=== PATIENT | female | born 1965 | race Caucasian/White ===

== ENCOUNTER → 2016-07-11 | Outpatient (CLI) | payer MEDICARE | LOC: SP 14:53 | PROVIDERS: ATTEND Physician Assistant | DX: M79.661 Pain in right lower leg (principal) | CPT/HCPCS: 93971 ==

== ENCOUNTER → 2016-08-26 | Outpatient (CLI) | payer MEDICARE ==
[2016-08-26 11:09] LABS: ABSOLUTE BASOPHILS # (AUTO) 0.1 10^3/uL (0.0-0.2); ABSOLUTE EOSINOPHILS # (AUTO) 0.3 10^3/uL (0.0-0.6); ABSOLUTE LYMPHOCYTES (AUTO) 2.6 10^3/uL (0.5-4.7); ABSOLUTE MONOCYTES (AUTO) 0.6 10^3/uL (0.1-1.4); ABSOLUTE NEUT (AUTO) 5.6 10^3/uL (1.7-8.2); BASOPHILS % (AUTO) 0.7 % (0-2); EOSINOPHILS % (AUTO) 2.9 % (0-6); HEMATOCRIT 42.6 % (36.0-47.0); HEMOGLOBIN 14.7 g/dL (12.0-15.5); HGB HCT DIFFERENCE 1.5; LYMPHOCYTES % (AUTO) 28.4 % (13-45); MEAN CORPUSCULAR HEMOGLOBIN 32.2 pg (27.0-33.4); MEAN CORPUSCULAR HGB CONC 34.5 g/dL (32.0-36.0); MEAN CORPUSCULAR VOLUME 93 fl (80-97); MONOCYTES % (AUTO) 6.3 % (3-13); RED BLOOD COUNT 4.56 10^6/uL (3.72-5.28); RED CELL DISTRIBUTION WIDTH 14.1 % (11.5-14.0); SEGMENTED NEUTROPHILS % (AUTO) 61.7 % (42-78); WHITE BLOOD COUNT 9.1 10^3/uL (4.0-10.5)
[2016-08-26 11:35] LABS: ANION GAP 14 (5-19); BLOOD UREA NITROGEN 13 mg/dL (7-20); CALCIUM 10.1 mg/dL (8.4-10.2); CARBON DIOXIDE 23 mmol/L (22-30); CHLORIDE 102 mmol/L (98-107); CREATININE RESULT 0.93 mg/dL (0.52-1.25); GLUCOSE 97 mg/dL (75-110); POTASSIUM 4.8 mmol/L (3.6-5.0); SODIUM 138.7 mmol/L (137-145)
--- NOTE | 2016-08-26 12:58 | EKG REPORT ---
SEVERITY:- NORMAL ECG - SINUS RHYTHM : Confirmed by: Bam Eid 26-Aug-2016 12:56:56
== END ==
LOC: OD 10:03
PROVIDERS: ATTEND Orthopaedic Surgery
DX: Z01.89 Encounter for other specified special examinations (principal)
CPT/HCPCS: 36415; 71020; 80048; 85025; 93005; 93010; 93041; 93042

== ENCOUNTER → 2016-09-16 | Outpatient (CLI) | payer MEDICARE, MEDICAID | LOC: WI 09:21 | PROVIDERS: ATTEND Physician Assistant | DX: Z12.31 Encounter for screening mammogram for malignant neoplasm of breast (principal) | CPT/HCPCS: 77067; G0202 ==

== ENCOUNTER 2016-09-20 10:20 | Emergency (ER) | payer MEDICARE, MEDICAID ==
--- NOTE | 2016-09-20 11:14 | ER Document Report ---
ED Extremity Problem, Lower - General Chief Complaint: Knee Injury Stated Complaint: FELL/KNEE PAIN Time seen by provider: 10:57 Mode of Arrival: Ambulatory Information source: Patient Notes: 51-year-old female presents to ED for pain in her right knee and ankle and foot. She recently had surgery on this right knee for a 20 minutes ago and a prescription for arthritis. She states she fell down the steps twisting her ankle and landing on her knee on the paper stones at the bottom. TRAVEL OUTSIDE OF THE [place] IN LAST 30 DAYS: No - HPI Patient complains to provider of: Injury, Pain, Swelling Location: Ankle, Foot, Knee Occurred: This morning Where: Home Onset/Duration: Gradual, Worse Quality of pain: Sharp, Throbbing Severity: Severe Pain Level: 5 Context: Crush, Fell Recent injury: Yes Associated symptoms: Painful ambulation Exacerbated by: Hanging down, Movement, Walking Relieved by: Nothing - Related Data Allergies/Adverse Reactions: Penicillins Allergy (Severe, Verified 09/20/16 10:24) Anaphylaxis lisinopril [From Zestril] Adverse Reaction (Severe, Verified 09/20/16 10:24) cough morphine [Morphine] Adverse Reaction (Verified 09/20/16 10:24) Confusion Past Medical History - General Information source: Patient - Social History Smoking Status: Current Every Day Smoker Cigarette use (# per day): Yes - pack per day Chew tobacco use (# tins/day): No Smoking Education Provided: Yes Frequency of alcohol use: None Drug Abuse: None Occupation: note Lives with: Family Family History: Arthritis - Osteoporosis and OSTEOARTHRITIS, DM, Hyperlipidemia , Hypertension, Malignancy Patient has suicidal ideation: No Patient has homicidal ideation: No - Past Medical History Cardiac Medical History: Reports: Hx Hypercholesterolemia, Hx Hypertension Pulmonary Medical History: Reports: None EENT Medical History: Reports: None Neurological Medical History: Reports: None Renal/ Medical History: Reports: None Malignancy Medical History: Reports: None GI Medical History: Reports: None Musculoskeltal Medical History: Reports Hx Arthritis - Osteoporosis and osteoarthritis, Reports Hx Musculoskeletal Deformity, Reports Hx Musculoskeletal Trauma Skin Medical History: Reports None Psychiatric Medical History: Reports: Hx Bipolar Disorder Traumatic Medical History: Reports: None Past Surgical History: Reports: Hx Abdominal Surgery - ventral hernia, Hx Cholecystectomy, Hx Hysterectomy, Hx Neurologic Surgery - Total 345 and S1 fusion, Hx Orthopedic Surgery - spinal fusion l3,4 and 5 - Immunizations Hx Diphtheria, Pertussis, Tetanus Vaccination: No Review of Systems - Review of Systems Constitutional: No symptoms reported EENT: No symptoms reported Cardiovascular: No symptoms reported Respiratory: No symptoms reported Gastrointestinal: No symptoms reported Genitourinary: No symptoms reported Female Genitourinary: No symptoms reported Musculoskeletal: Ankle swelling - Ankle pain swelling and abrasion injury, Other - Knee pain and swelling abrasion Skin: No symptoms reported Hematologic/Lymphatic: No symptoms reported Neurological/Psychological: No symptoms reported -: Yes All other systems reviewed and negative Physical Exam - Vital signs Vitals: Temp Pulse Resp BP Pulse Ox 98.1 F 111 H 16 128/93 H 98 09/20/16 10:26 09/20/16 10:26 09/20/16 10:26 09/20/16 10:26 09/20/16 10:26 Interpretation: Normal - General General appearance: Appears well, Alert - HEENT Head: Normocephalic, Atraumatic Eyes: Normal Pupils: PERRL - Respiratory Respiratory status: No respiratory distress Chest status: Nontender Breath sounds: Normal Chest palpation: Normal - Cardiovascular Rhythm: Regular Heart sounds: Normal auscultation Murmur: No - Abdominal Inspection: Normal Distension: No distension Bowel sounds: Normal Tenderness: Nontender Organomegaly: No organomegaly - Back Back: Normal, Nontender - Extremities General upper extremity: Normal inspection, Nontender, Normal color, Normal ROM , Normal temperature General lower extremity: Normal inspection, Nontender, Normal color, Normal ROM , Normal temperature, Normal weight bearing. No: Keira's sign - Neurological Neuro grossly intact: Yes Cognition: Normal Orientation: AAOx4 [place] Coma Scale Eye Opening: Spontaneous [place] Coma Scale Verbal: Oriented [place] Coma Scale Motor: Obeys Commands [place] Coma Scale Total: 15 Speech: Normal Motor strength normal: LUE, RUE, LLE, RLE Sensory: Normal - Psychological Associated symptoms: Normal affect, Normal mood - Skin Skin Temperature: Warm Skin Moisture: Dry Skin Color: Normal, Ecchymosis - Knee and ankle, Other - Large abrasion to the right knee Irregularity with: Swelling - Knee and ankle, Tenderness - Knee and ankle, Weeping - Knee Course - Re-evaluation Re-evalutation: 09/20/16 12:26 Discussed x-rays with patient Will apply Owen wrap and stirrup splint to right ankle and Owen wrap to right knee the patient will be instructed on use of crutches. Patient to follow-up with orthopedic on Thursday. We'll send home with prescription of hydrocodone. - Vital Signs Vital signs: Temp Pulse Resp BP Pulse Ox 98.1 F 111 H 16 128/93 H 98 09/20/16 10:45 09/20/16 10:45 09/20/16 10:45 09/20/16 10:45 09/20/16 10:45 - Diagnostic Test Radiology reviewed: Image reviewed, Reports reviewed Procedures - Immobilization Right Ankle Time completed: 12:27 Immobilizer type: Owen wrap, Ankle stirrup, Crutches Performed by: PCT Post-Proc Neuro Vasc Exam: Normal Alignment checked and good: Yes right knee Immobilizer type: Owen wrap Performed by: PCT Post-Proc Neuro Vasc Exam: Normal Alignment checked and good: Yes Discharge - Discharge Clinical Impression: Fall Qualifiers: Encounter type: initial encounter Qualified Code(s): W19.XXXA - Unspecified fall, initial encounter Ankle sprain Qualifiers: Encounter type: initial encounter Involved ligament of ankle: unspecified ligament Laterality: right Qualified Code(s): S93.401A - Sprain of unspecified ligament of right ankle, initial encounter Knee contusion Qualifiers: Encounter type: initial encounter Laterality: right Qualified Code(s): S80.01XA - Contusion of right knee, initial encounter Abrasion, right knee, initial encounter Qualifiers: Encounter type: initial encounter Qualified Code(s): S80.211A - Abrasion, right knee, initial encounter Condition: Stable Disposition: HOME, SELF-CARE Additional Instructions: CONTUSION: Your injury has resulted in a contusion -- a crushing of the deep tissues. No injury to important structures was detected during the physician's exam. Contusions vary in the amount of pain they cause, and in the length of time required for healing. Typically, the area will become bruised, and will remain painful to touch for two or three weeks. However, most patients are back to working and playing within a few days. After the initial period of rest and cold-packs, your symptoms (together with the doctor's recommendations) will determine how rapidly you can get back to full activity. Usually this means "do what feels okay, but don't do things that hurt." If re-examination was recommended, it's important to follow up as instructed. Call the doctor or return any time if pain increases, if swelling becomes severe, if you develop numbness or weakness in an injured extremity, or if any other alarming symptoms occur. SPRAIN: Your injury is a sprain. A sprain results from stretching or tearing of the ligaments, usually from a twisting injury. The ligaments will require time and protection in order to heal properly. Many sprains are quite disabling and should be taken seriously. The usual initial treatment of sprains is cold packs, elevation, and rest of the injured area. Your physician has assessed the seriousness of your ligament injury, and has outlined a treatment plan. Understand that this treatment may change, depending on how you progress. If a re-examination was recommended, it is important that you follow up as instructed. Call the doctor any time if there is severe pain, numbness, or loss of function in the injured area. OWEN WRAP: A compression dressing (owen wrap) has been placed. This helps hold the area still. It limits swelling and internal bleeding. The wrap should be comfortably snug -- not tight. You should feel a sense of pressure, but not severe pain under the wrap. Unless the physician tells you otherwise, you can adjust the wrap for comfort. If the wrap causes symptoms suggesting it's too tight -- uncomfortable pressure, swelling or discoloration beyond the wrap, numbness, or severe pain - - you must loosen the wrap. If these symptoms don't resolve promptly, return for re-evaluation. SPRAINED ANKLE: Your sprained ankle results from stretching or tearing of the ligaments which support the ankle. This usually results from twisting the foot inward and under. The ligaments will require time and protection in order to heal properly. Many ankle sprains are quite disabling, and should be taken seriously. The usual treatment for an ankle sprain is cold packs; protection with tape , splints, or wraps; elevation; and staying off the ankle for at least a day. As the ankle improves, you can walk IF it's not painful to bear weight. Sports are best postponed until healing is complete. More serious sprains usually require strengthening exercises after early healing. Your physician has assessed the seriousness of the ligament injury to your ankle. However, the treatment may change, depending on how your ankle progresses. If further exams were recommended, it is important that you follow through. Call the doctor if your foot becomes numb, painful, or severely swollen. ANKLE STIRRUP SPLINT: You are to use an ankle brace called a stirrup splint. This type of brace allows you to place greater stresses on the ankle without risk of re-injury, and is often used for more severe ankle injuries such as avulsion fractures and ligament ruptures. The splint can be worn over a sock or tape. For proper support, wear the splint with a shoe over it. It's important that the splint fit properly. Adjust the heel tension, if needed. If your splint has air bladders, peel back the bottom of each air bladder, then move the Velcro attachment of the heel strap up or down. Air bladder pressure can be adjusted by pulling up the valve at the top, threading the air tube down into the main bladder, then blowing air into the bladder or squeezing it out. The two sides of the stirrup can be moved forward or back on your ankle by changing the attachment of the main straps. If you are unable to use the ankle comfortably in the splint, return for re -evaluation. USE OF CRUTCHES: The doctor has recommended that you not bear weight at this time. You will need to use crutches. Adjust the crutches so the tops come to about two inches under the armpit while you are standing upright. Use your hands -- not your armpits -- to support your weight. To get into a chair, support yourself with one crutch on the injured side. Hold the chair with the other hand, then lower yourself while putting all your weight on the good leg. Going up stairs is `good leg up, step up, then bring up crutches and bad leg.' Down stairs is `bad leg and crutches down, then bring good leg down.' If you develop numbness or swelling in an arm or hand, you are using the crutches incorrectly. Return if you are having any problems with the crutches. ICE & ELEVATION: Apply ice packs frequently against the painful area. Many different schedules are recommended, such as "20 minutes on, 20 minutes off" or "one hour ice, two hours rest." If you need to work, you may need to go longer between ice treatments. You should plan to have the area ice packed AT LEAST one- fourth of the time. The ice should be applied over the wrap, tape, or splint, or over a layer of cloth -- not directly against the skin. Some ice bags have a built-in cloth and can be put directly on the skin. Your injured part should be elevated as much as possible over the next 48 hours. Try to keep the injury above the level of the heart. Avoid use of the injured area. Elevation and rest will decrease the swelling. USE OF [id number] IBUPROFEN: Ibuprofen (Advil, Nuprin, Medipren, Motrin IB) is a medication for fever and pain control. In addition, it has anti- inflammatory effects which may be beneficial, especially in the treatment of injuries. It's best to take ibuprofen with food. Persons with ulcer disease or allergy to aspirin should notify their physician of this before taking ibuprofen. Ibuprofen can be given every four to six hours, for a total of four doses daily. Age Pain or fever dose Antiinflammatory dose 6-8 yr 200 mg (1 tab) 200 mg (1 tab) 9-11 yr 200 mg (1 tab) 200-400 mg (1-2 tab) 11-14 yr 200-400 mg (1-2 tab) 400 mg (2 tab) 15-adult 400 mg (2 tab) 600 mg (3 tab) ABRASIONS: An abrasion is a scraping injury of the skin. Some scarring may result. The seriousness of an abrasion is not always obvious at first. Hidden tissue damage may be present and infection may occur despite proper care. Complete healing may take from ten days to as long as a month. The healing time depends on the depth of the abrasion, and on the amount of crushing of underlying tissues from the injury. Keep the wound and dressing clean. Do not shower or bathe the area until okayed by the doctor. If the dressing gets wet, remove it and blot the wound dry, then reapply a clean dressing. Dressings should be changed every day. Sunscreen should be used for six months after the skin is healed. If any signs of infection occur (swelling, redness, increasing tenderness, red streaks, profuse purulent drainage from the abrasion, tender lumps in the armpit or groin above the abrasion, or fever), see the doctor immediately. Soap Cleansing Gently wash the wound daily using a mild soap (like Ivory, Phisoderm, Neutrogena). Use warm water, rubbing gently until all debris, ooze, and crusting have been washed from the wound. Allow to dry briefly (about 10 minutes) after cleaning. Repeat this cleansing at least three times a day for the first two days and then once or twice a day. Antibiotic Ointment Protection Your wounds are such that dressing them is not practical or optional. After cleansing, you should apply a thin coating of antibiotic ointment ( Bacitracin, not Neosporin) to the wounds at least three times daily. This lessens infection risk, and may decrease the amount of scarring. Use a q-tip or dull butter knife, not your finger, to apply this ointment. Any debris or ooze which builds up in the ointment should be gently rubbed off with a sterile gauze pad. Harder crusting may need to be gently scrubbed off with a clean wash cloth with soap and warm water, perhaps applying a warm, wet wash cloth to the wound for ten minutes first. Development of redness, severe itching, or blistering may mean allergy to the ointment. See the doctor. ICE PACKS: Apply ice packs frequently against the painful area. Many different schedules are recommended, such as "20 minutes on, 20 minutes off" or "one hour ice, two hours rest." If you need to work, you may need to go longer between ice treatments. You should plan to have the area ice packed AT LEAST one fourth of the time. The ice should be applied over the wrap, tape, or splint, or over a layer of cloth -- not directly against the skin. Some ice bags have a built-in cloth and can be put directly on the skin. WARM PACKS: After approximately two days, apply gentle heat (such as a heating pad or hot water bottle) for about 20 to 30 minutes about every two hours -- at least four times daily. Warmth and elevation will help you make a more rapid recovery , and will ease the pain considerably. Do not use HOT heat, and never apply heat for longer than 30 minutes. The continuous heat can invisibly damage skin and muscles -- even when no burn is seen on the surface. Damaged muscles can make you MORE sore. ORAL NARCOTIC MEDICATION: You have been given a prescription for pain control. This medication is a narcotic. It's best taken with food, as nausea can result if taken on an empty stomach. Don't operate machinery or drive within six hours of taking this medication. Do not combine this medicine with alcohol, or with any medication which can cause sedation (such as cold tablets or sleeping pills) unless you get permission from the physician. Narcotics tend to cause constipation. If possible, drink plenty of fluids and eat a diet high in fiber and fruits. FOLLOW-UP CARE: If you have been referred to a physician for follow-up care, call the physician s office for an appointment as you were instructed or within the next two days. If you experience worsening or a significant change in your symptoms, notify the physician immediately or return to the Emergency Department at any time for re-evaluation. Please complete the patient's satisfaction survey if you get one and return. If you do not receive a survey you can go to [facility] website [email or web address] and placed your comments about your very good care. Thank you very much. It was a pleasure be in your medical provider today. Prescriptions: Hydrocodone/Acetaminophen [[place] 5-325 mg Tablet] 1 tab PO Q6HP PRN #14 tablet PRN Reason: Forms: Elevated Blood Pressure, Smoking Cessation Education Referrals: RONEN MAY PA-C [Primary Care Provider] - Follow up as needed ANGEL LUIS ZAMORA MD [ACTIVE STAFF] - 09/22/16
[2016-09-20 12:39] VITALS: BP 127/90
== END 2016-09-20 12:48 | disposition home or self-care (01) ==
LOC: ER 10:20
DX: S93.401A Sprain of unspecified ligament of right ankle, initial encounter (principal); S80.01XA Contusion of right knee, initial encounter; M25.561 Pain in right knee; M25.571 Pain in right ankle and joints of right foot; M79.671 Pain in right foot; W10.9XXA Fall (on) (from) unspecified stairs and steps, initial encounter; Y93.89 Activity, other specified; Y92.009 Unspecified place in unspecified non-institutional (private) residence as the place of occurrence of the external cause; I10 Essential (primary) hypertension; F17.210 Nicotine dependence, cigarettes, uncomplicated; Z98.890 Other specified postprocedural states; Z87.892 Personal history of anaphylaxis; Z88.0 Allergy status to penicillin
CPT/HCPCS: 99283; 73610; 73630; 73564; L4350

== ENCOUNTER 2017-10-06 10:45 | Emergency (ER) | payer MEDICARE, MEDICAID ==
[2017-10-06] MEDS ORDERED: NORMAL SALINE 1000 ML 1,000 ML IV ONE (11:02)
[2017-10-06] MEDS ORDERED: KETOROLAC TROMETHAMINE INJ/PF 30 MG/1 ML SDV IV ONE (11:02)
--- NOTE | 2017-10-06 11:05 | ER Document Report ---
ED Medical Screen (RME) - General Chief Complaint: Abdominal Pain Stated Complaint: REACTION TO MEDICATION Time Seen by Provider: 10/06/17 11:02 Notes: The patient is a 52-year-old female who presents with lower right quadrant and suprapubic abdominal cramping and pain. She was diagnosed with MRSA infection in March after a spider bite in [place]. She then was diagnosed with C. difficile and started on Flagyl. She took 2 doses of Flagyl before the abdominal pain started. PE: Tachycardia, regular rhythm. Tenderness over RLQ and suprapubic region. I have greeted and performed a rapid initial assessment of this patient. A comprehensive ED assessment and evaluation of the patient, analysis of test results and completion of the medical decision making process will be conducted by additional ED providers. TRAVEL OUTSIDE OF THE [place] IN LAST 30 DAYS: No - Related Data Allergies/Adverse Reactions: Penicillins Allergy (Severe, Verified 10/06/17 10:50) Anaphylaxis lisinopril [From Zestril] Adverse Reaction (Severe, Verified 10/06/17 10:50) cough morphine [Morphine] Adverse Reaction (Verified 10/06/17 10:50) Confusion Past Medical History - Social History Chew tobacco use (# tins/day): No Frequency of alcohol use: None Drug Abuse: None - Past Medical History Cardiac Medical History: Reports: Hx Hypercholesterolemia, Hx Hypertension Renal/ Medical History: Denies: Hx Peritoneal Dialysis Musculoskeltal Medical History: Reports Hx Arthritis - Osteoporosis and osteoarthritis, Reports Hx Musculoskeletal Deformity, Reports Hx Musculoskeletal Trauma Psychiatric Medical History: Reports: Hx Bipolar Disorder Past Surgical History: Reports: Hx Abdominal Surgery - ventral hernia, Hx Cholecystectomy, Hx Hysterectomy, Hx Neurologic Surgery - Total 345 and S1 fusion, Hx Orthopedic Surgery - spinal fusion l3,4 and 5 - Immunizations Hx Diphtheria, Pertussis, Tetanus Vaccination: No Physical Exam - Vital signs Vitals: Temp Pulse Resp BP Pulse Ox 98.2 F 109 H 20 163/104 H 97 10/06/17 10:50 10/06/17 10:50 10/06/17 10:50 10/06/17 10:50 10/06/17 10:50 Course - Vital Signs Vital signs: Temp Pulse Resp BP Pulse Ox 98.2 F 109 H 20 163/104 H 97 10/06/17 10:50 10/06/17 10:50 10/06/17 10:50 10/06/17 10:50 10/06/17 10:50
[2017-10-06 11:35] LABS: ABSOLUTE BASOPHILS # (AUTO) 0.1 10^3/uL (0.0-0.2); ABSOLUTE EOSINOPHILS # (AUTO) 0.3 10^3/uL (0.0-0.6); ABSOLUTE LYMPHOCYTES (AUTO) 3.2 10^3/uL (0.5-4.7); ABSOLUTE MONOCYTES (AUTO) 0.6 10^3/uL (0.1-1.4); ABSOLUTE NEUT (AUTO) 4.4 10^3/uL (1.7-8.2); EOSINOPHILS % (AUTO) 3.1 % (0-6); HEMATOCRIT 43.3 % (36.0-47.0); HEMOGLOBIN 14.4 g/dL (12.0-15.5); LYMPHOCYTES % (AUTO) 37.4 % (13-45); MEAN CORPUSCULAR HEMOGLOBIN 30.4 pg (27.0-33.4); MEAN CORPUSCULAR HGB CONC 33.3 g/dL (32.0-36.0); MEAN CORPUSCULAR VOLUME 91 fl (80-97); MONOCYTES % (AUTO) 6.7 % (3-13); PLATELET COUNT 356 10^3/uL (150-450); RED BLOOD COUNT 4.75 10^6/uL (3.72-5.28); RED CELL DISTRIBUTION WIDTH 14.3 % (11.5-14.0); SEGMENTED NEUTROPHILS % (AUTO) 51.8 % (42-78); TOTAL CELLS COUNTED % (AUTO) 100 %; WHITE BLOOD COUNT 8.5 10^3/uL (4.0-10.5)
[2017-10-06 11:39] LABS: APPEARANCE,URINE CLEAR; BILIRUBIN,URINE NEGATIVE (NEGATIVE); COLOR,URINE STRAW; GLUCOSE, URINE NEGATIVE (NEGATIVE); KETONES,URINE NEGATIVE (NEGATIVE); LEUKOCYTE ESTERASE,URINE NEGATIVE (NEGATIVE); NITRITE,URINE NEGATIVE (NEGATIVE); PROTEIN,URINE NEGATIVE (NEGATIVE); URINE SPECIFIC GRAVITY 1.003; UROBILINOGEN,URINE NEGATIVE mg/dL (<2.0)
[2017-10-06 11:50] LABS: ALANINE AMINOTRANSFERASE 38 U/L (9-52); ALBUMIN 4.9 g/dL (3.5-5.0); ALKALINE PHOSPHATASE 29 U/L (38-126); ANION GAP 15 (5-19); ASPARTATE AMINO TRANSFERASE 21 U/L (14-36); BILIRUBIN,DIRECT 0.2 mg/dL (0.0-0.4); BILIRUBIN,TOTAL 0.2 mg/dL (0.2-1.3); BLOOD UREA NITROGEN 11 mg/dL (7-20); CALCIUM 10.4 mg/dL (8.4-10.2); CARBON DIOXIDE 27 mmol/L (22-30); CHLORIDE 103 mmol/L (98-107); GLUCOSE 97 mg/dL (75-110); LIPASE 381.9 U/L (23-300); POTASSIUM 4.6 mmol/L (3.6-5.0)
[2017-10-06] MEDS ORDERED: CLONIDINE HCL 0.2 MG TABLET PO ONE (11:57)
--- NOTE | 2017-10-06 13:12 | ER Document Report ---
ED General - General Chief Complaint: Abdominal Pain Stated Complaint: REACTION TO MEDICATION Time Seen by Provider: 10/06/17 11:02 Mode of Arrival: Ambulatory Information source: Patient Notes: 52 year old female presents to the ER with complaints of abdominal pain, nausea , and headache that started on Thursday. She denies vomiting. She has a history of C. Difficile and was started on metronidazole. She took one dose on Thursday and started to have symptoms. She admitted to not taking the dose on Thursday. When she called her primary care provider this morning, they advised her to not miss doses of the metronidazole. Patient denies chest pain, shortness of breath , blood in her stool, fever, or chills. TRAVEL OUTSIDE OF THE [place] IN LAST 30 DAYS: No - HPI Onset: Yesterday Onset/Duration: Sudden Quality of pain: Cramping Severity: Mild Pain Level: 1 Associated symptoms: Nausea Exacerbated by: Denies Relieved by: Denies Similar symptoms previously: No Recently seen / treated by doctor: Yes - Related Data Allergies/Adverse Reactions: Penicillins Allergy (Severe, Verified 10/06/17 10:50) Anaphylaxis lisinopril [From Zestril] Adverse Reaction (Severe, Verified 10/06/17 10:50) cough morphine [Morphine] Adverse Reaction (Verified 10/06/17 10:50) Confusion Past Medical History - Social History Smoking Status: Current Every Day Smoker Cigarette use (# per day): Yes Chew tobacco use (# tins/day): No Smoking Education Provided: No Frequency of alcohol use: None Drug Abuse: None Family History: Arthritis - Osteoporosis and OSTEOARTHRITIS, DM, Hyperlipidemia , Hypertension, Malignancy Patient has suicidal ideation: No Patient has homicidal ideation: No - Past Medical History Cardiac Medical History: Reports: Hx Hypercholesterolemia, Hx Hypertension Renal/ Medical History: Denies: Hx Peritoneal Dialysis Musculoskeltal Medical History: Reports Hx Arthritis - Osteoporosis and osteoarthritis, Reports Hx Musculoskeletal Deformity, Reports Hx Musculoskeletal Trauma Psychiatric Medical History: Reports: Hx Bipolar Disorder Past Surgical History: Reports: Hx Abdominal Surgery - ventral hernia, Hx Cholecystectomy, Hx Hysterectomy, Hx Neurologic Surgery - Total 345 and S1 fusion, Hx Orthopedic Surgery - spinal fusion l3,4 and 5 - Immunizations Hx Diphtheria, Pertussis, Tetanus Vaccination: No Review of Systems - Review of Systems Notes: REVIEW OF SYSTEMS: CONSTITUTIONAL : Denies fever, chills, or sweats. Denies recent illness. EENT: Denies eye, ear, throat, or mouth pain or symptoms. Denies nasal or sinus congestion or discharge. Denies throat, tongue, or mouth swelling or difficulty swallowing. CARDIOVASCULAR: Denies chest pain. Denies palpitations or racing or irregular heart beat. Denies ankle edema. RESPIRATORY: Denies cough, cold, or chest congestion. Denies shortness of breath, difficulty breathing, or wheezing. GASTROINTESTINAL: Admits to abdominal cramping nausea vomiting diarrhea GENITOURINARY: Denies difficulty urinating, painful urination, burning, frequency, blood in urine, or discharge. FEMALE GENITOURINARY: Denies vaginal bleeding, heavy or abnormal periods, irregular periods. Denies vaginal discharge or odor. MUSCULOSKELETAL: Denies back or neck pain or stiffness. Denies joint pain or swelling. SKIN: Denies rash, lesions or sores. HEMATOLOGIC : Denies easy bruising or bleeding. LYMPHATIC: Denies swollen, enlarged glands. NEUROLOGICAL: Denies confusion or altered mental status. Denies passing out or loss of consciousness. Denies dizziness or lightheadedness. Denies headache. Denies weakness or paralysis or loss of use of either side. Denies problems with gait or speech. Denies sensory loss, numbness, or tingling. Denies seizures. PSYCHIATRIC: Denies anxiety or stress. Denies depression, suicidal ideation, or homicidal ideation. ALL OTHER SYSTEMS REVIEWED AND NEGATIVE. PHYSICAL EXAMINATION: GENERAL: Well-appearing, well-nourished and in no acute distress. HEAD: Atraumatic, normocephalic. EYES: Pupils equal round and reactive to light, extraocular movements intact, conjunctiva are normal. ENT: Nares patent, oropharynx clear without exudates. Moist mucous membranes. NECK: Normal range of motion, supple without lymphadenopathy LUNGS: Breath sounds clear to auscultation bilaterally and equal. No wheezes rales or rhonchi. HEART: Regular rate and rhythm without murmurs ABDOMEN: Soft, nontender, nondistended abdomen. No guarding, no rebound. No masses appreciated. Female : deferred Musculoskeletal: Normal range of motion, no pitting or edema. No cyanosis. NEUROLOGICAL: Cranial nerves grossly intact. Normal speech, normal gait. Normal sensory, motor exams PSYCH: Normal mood, normal affect. SKIN: Warm, Dry, normal turgor, no rashes or lesions noted. Dictation was performed using [employer] voice recognition software Physical Exam - Vital signs Vitals: Temp Pulse Resp BP Pulse Ox 98.2 F 109 H 20 163/104 H 97 10/06/17 10:50 10/06/17 10:50 10/06/17 10:50 10/06/17 10:50 10/06/17 10:50 Course - Re-evaluation Re-evalutation: 10/06/17 16:16 At this time patient's presentation is quite benign, it appears she was on multiple courses of antibiotics and contracted C. difficile, she has been on Flagyl but after taking her dose of Flagyl immediately became nauseous and having abdominal cramping, I believe this was secondary to the medications, the Flagyl however is the appropriate medication patient has been encouraged to stop using hand staff rn that has alcohol in it which I believe may be causing some of her symptoms. Patient has been instructed to use hot water and soap and to take her medications appropriately has been given nausea control After performing a Medical Screening Examination, I estimate there is LOW risk for ACUTE APPENDICITIS, BOWEL OBSTRUCTION, ACUTE CHOLECYSTITIS, PERFORATED DIVERTICULITIS, INCARCERATED HERNIA, PANCREATITIS, PELVIC INFLAMMATORY DISEASE, PERFORATED ULCER, ECTOPIC , or TUBO-OVARIAN ABSCESS, thus I consider the discharge disposition reasonable. Also, there is no evidence or peritonitis , sepsis, or toxicity. I have reevaluated this patient multiple times and no significant life threatening changes are noted. The patient and I have discussed the diagnosis and risks, and we agree with discharging home with close follow-up with the understanding that symptoms and presentations can change. We also discussed returning to the Emergency Department immediately if new or worsening symptoms occur. We have discussed the symptoms which are most concerning (e.g., bloody stool, fever, changing or worsening pain, vomiting) that necessitate immediate return. - Vital Signs Vital signs: Temp Pulse Resp BP Pulse Ox 98.7 F 79 18 135/88 H 98 10/06/17 14:30 10/06/17 14:30 10/06/17 14:30 10/06/17 14:30 10/06/17 14:30 - Laboratory Result Diagrams: 10/06/17 11:20 10/06/17 11:20 Laboratory results interpreted by me: 10/06/17 10/06/17 11:20 11:20 RDW 14.3 H Calcium 10.4 H Alkaline Phosphatase 29 L Lipase 381.9 H - Diagnostic Test Radiology reviewed: Image reviewed - CT abdomen noted with IV contrast no acute abnormality, Reports reviewed Discharge - Discharge Clinical Impression: C. difficile diarrhea Medication reaction Qualifiers: Encounter type: initial encounter Qualified Code(s): T88.7XXA - Unspecified adverse effect of drug or medicament, initial encounter Nausea & vomiting Qualifiers: Vomiting type: unspecified Vomiting Intractability: non-intractable Qualified Code(s): R11.2 - Nausea with vomiting, unspecified Condition: Stable Disposition: HOME, SELF-CARE Instructions: Abdominal Pain ([facility]) Prescriptions: Ondansetron [Zofran Odt 4 mg Tablet] 1 - 2 tab PO Q4H PRN #15 tab.rapdis PRN Reason: For Nausea/Vomiting Referrals: RONEN MAY PA-C [Primary Care Provider] - Follow up tomorrow
--- NOTE | 2017-10-06 13:17 | RADIOLOGY REPORT (SQ) ---
EXAM DESCRIPTION: CT ABD/PELVIS WITH IV ONLY COMPLETED DATE/TIME: 10/06/2017 12:58 pm REASON FOR STUDY: abd pain, elevated lipase COMPARISON: CT chest 03/15/2012 TECHNIQUE: CT scan of the abdomen and pelvis performed using helical scanning technique with dynamic intravenous contrast injection. No oral contrast. Images reviewed with lung, soft tissue, and bone windows. Reconstructed coronal and sagittal MPR images reviewed. Delayed images for evaluation of the urinary system also acquired. All images stored on PACS. All CT scanners at this facility use dose modulation, iterative reconstruction, and/or weight based d osing when appropriate to reduce radiation dose to as low as reasonably achievable (ALARA). [facility]: Dose Right [facility]: CareDose [facility]: Dose Right [facility]: Teradose 4D [facility]: DataMentors CONTRAST TYPE AND DOSE: contrast/concentration: Isovue 370.00 mg/ml; Total Contrast Delivered: 100.0 ml; Total Saline Delivered: 63.1 ml RENAL FUNCTION: Creatinine 0.9 RADIATION DOSE: CT Rad equipment meets quality standard of care and radiation dose reduction techniq ues were employed. CTDIvol: 19.3 - 20.9 mGy. DLP: 2315 mGy-cm.. LIMITATIONS: None. FINDINGS: LOWER CHEST: No significant findings. No nodules or infiltrates. LIVER: Normal size. No masses. No dilated ducts. 1.7 cm benign cyst left lobe liver, a 1 cm benign cyst posterior right lobe liver SPLEEN: Normal size. No focal lesions. PANCREAS: No masses. No significant calcifications. No adjacent inflammation or peripancreatic fluid collections. Pancreatic duct not dilated. GALLBLADDER: Surgically absent ADRENAL GLANDS: No significant masses or asymmetry. RIGHT KIDNEY AND URETER: No solid masses. No significant calcifications. No hydronephrosis or hyd roureter. LEFT KIDNEY AND URETER: No solid masses. No significant calcifications. No hydronephrosis or hydr oureter. AORTA AND VESSELS: No abdominal aortic aneurysm or dissection. Moderate visceral artery origin ather osclerotic calcification of the aorta without celiac or SMA stenosis, about 50% bilateral renal arter y stenosis RETROPERITONEUM: No retroperitoneal adenopathy, hemorrhage or masses. BOWEL AND PERITONEAL CAVITY: No oral contrast. Moderate stool throughout the colon. No CT evidence of bowel obstruction, free intraperitoneal air or fluid. APPENDIX: Surgically absent PELVIS: No mass. No free fluid. Normal bladder. Post hysterectomy. Ovaries are identified at the t op of the vaginal cuff ABDOMINAL WALL: Intact laparoscopic ventral hernia repair BONES: Prior fusion at L4-5 OTHER: No other significant finding. IMPRESSION: No CT evidence of acute pancreatitis. Post cholecystectomy, appendectomy and hysterectomy. Intact laparoscopic ventral hernia repair TECHNICAL DOCUMENTATION: JOB ID: [id number] Quality ID # [id number]: Final reports with documentation of one or more dose reduction techniques (e.g., Au tomated exposure control, adjustment of the mA and/or kV according to patient size, use of iterative reconstruction technique) 2010 [employer]- All Rights Reserved Reading location - IP/workstation name: [email or web address]
[2017-10-06 14:31] VITALS: BP 135/88
== END 2017-10-06 14:30 | disposition home or self-care (01) ==
LOC: ER 10:45
DX: A04.72 Enterocolitis due to Clostridium difficile, not specified as recurrent (principal); R11.2 Nausea with vomiting, unspecified; R10.9 Unspecified abdominal pain; R51 Headache; F17.210 Nicotine dependence, cigarettes, uncomplicated; I10 Essential (primary) hypertension
CPT/HCPCS: 99284; 96361; 96374; 36415; 83690; 85025; 80053; 81001; 74177; A9270; J1885; J7030

== ENCOUNTER 2017-10-19 07:22 | Day surgery (SDC) | payer MEDICARE, MEDICAID ==
[~2017-10-19 07:22] MED LIST: PROPOFOL INJ 200 MG/20 ML VIAL IV ONE
[2017-10-19 09:04] VITALS: BP 126/86
--- NOTE | 2017-10-19 13:46 | Operative Report ---
Operative Report DATE OF SURGERY: 10/19/17 Operative Report: The risks, benefits and alternatives of the procedure including risks of bleeding, perforation requiring surgery are explained to the patient in detail and informed consent is obtained. Patient is brought back to the endoscopy suite and placed in a left, lateral decubital position. Timeout was called. Propofol medications administered. A rectal examination is done which did not reveal any masses, tears or fissures. An Olympus videoscope was inserted into the patient's rectum. It was then carefully advanced all the way to the cecum. The cecum was identified by the usual anatomical landmarks including the ileocecal valve as well as the appendiceal office. Photodocumentation is obtained. The scope was then sequentially pulled back via the various segments of the colon including the ascending colon, hepatic flexure, transverse colon, splenic flexure, descending colon and finally in to the rectosigmoid portions of the colon. Retroflexion maneuvers performed. PREOPERATIVE DIAGNOSIS: Change in bowel habits POSTOPERATIVE DIAGNOSIS: Right-sidedcolon Inflammation status post biopsy rule out collagenous, lymphocytic colitis. OPERATION: Colonoscopy with biopsy SURGEON: LUIS FERNANDO NEWMAN ANESTHESIA: LMAC TISSUE REMOVED OR ALTERED: As noted above. COMPLICATIONS: None. ESTIMATED BLOOD LOSS: None. INTRAOPERATIVE FINDINGS: As noted above. PROCEDURE: Patient tolerated the procedure well. No immediate postprocedure complications are noted. Patient discharged in good condition. Discharge date 10/19/2017. Discharge diet: Regular. Discharge activity: Regular. 2-3 week follow-up to discuss findings. Patient is instructed call the office or proceed to the emergency room should there be any further problems or questions. We will went pathology. If -10 year surveillance colonoscopy.
== END 2017-10-19 09:15 | disposition home or self-care (01) ==
LOC: END 07:22
PROVIDERS: ATTEND Internal Medicine Gastroenterology
DX: K52.9 Noninfective gastroenteritis and colitis, unspecified (principal); K92.1 Melena; I10 Essential (primary) hypertension; E78.5 Hyperlipidemia, unspecified; F17.210 Nicotine dependence, cigarettes, uncomplicated; E78.00 Pure hypercholesterolemia, unspecified; E66.9 Obesity, unspecified; Z68.30 Body mass index [BMI] 30.0-30.9, adult; Z79.899 Other long term (current) drug therapy; Z79.82 Long term (current) use of aspirin; Z79.51 Long term (current) use of inhaled steroids; Z88.0 Allergy status to penicillin; Z88.8 Allergy status to other drugs, medicaments and biological substances
CPT/HCPCS: 45380; 88305 ×2; J2704; 811

== ENCOUNTER 2018-03-25 05:28 | Day surgery (SDC) | payer MEDICARE, MEDICAID ==
[2018-03-22 11:35] LABS: BILIRUBIN,URINE NEGATIVE (NEGATIVE); COLOR,URINE YELLOW; GLUCOSE, URINE NEGATIVE (NEGATIVE); KETONES,URINE NEGATIVE (NEGATIVE); LEUKOCYTE ESTERASE,URINE TRACE (NEGATIVE); NITRITE,URINE NEGATIVE (NEGATIVE); PROTEIN,URINE NEGATIVE (NEGATIVE); UROBILINOGEN,URINE NEGATIVE mg/dL (<2.0)
[2018-03-22 11:47] LABS: APPEARANCE,URINE CLEAR
[2018-03-22 11:47] LABS: HEMATOCRIT 43.4 % (36.0-47.0); HEMOGLOBIN 14.9 g/dL (12.0-15.5); MEAN CORPUSCULAR HEMOGLOBIN 31.5 pg (27.0-33.4); MEAN CORPUSCULAR HGB CONC 34.2 g/dL (32.0-36.0); MEAN CORPUSCULAR VOLUME 92 fl (80-97); PLATELET COUNT 286 10^3/uL (150-450); RED BLOOD COUNT 4.72 10^6/uL (3.72-5.28); RED CELL DISTRIBUTION WIDTH 14.3 % (11.5-14.0); WHITE BLOOD COUNT 10.4 10^3/uL (4.0-10.5)
[2018-03-22 12:07] LABS: ANION GAP 15 (5-19); BLOOD UREA NITROGEN 13 mg/dL (7-20); CALCIUM 10.6 mg/dL (8.4-10.2); CARBON DIOXIDE 23 mmol/L (22-30); CHLORIDE 100 mmol/L (98-107); GLUCOSE 86 mg/dL (75-110); POTASSIUM 4.8 mmol/L (3.6-5.0); SODIUM 138.1 mmol/L (137-145)
--- NOTE | 2018-03-22 13:02 | RADIOLOGY REPORT (SQ) ---
EXAM DESCRIPTION: CHEST PA/LATERAL COMPLETED DATE/TIME: 03/22/2018 10:58 am REASON FOR STUDY: PRE-OP COMPARISON: 08/26/2016 EXAM PARAMETERS: NUMBER OF VIEWS: two views TECHNIQUE: Digital Frontal and Lateral radiographic views of the chest acquired. RADIATION DOSE: NA LIMITATIONS: none FINDINGS: LUNGS AND PLEURA: No opacities, masses or pneumothorax. No pleural effusion. MEDIASTINUM AND HILAR STRUCTURES: No masses or contour abnormalities. HEART AND VASCULAR STRUCTURES: Heart normal size. No evidence for failure. BONES: No acute findings. HARDWARE: None in the chest. OTHER: No other significant finding. IMPRESSION: NO SIGNIFICANT RADIOGRAPHIC FINDING IN THE CHEST. TECHNICAL DOCUMENTATION: JOB ID: [id number] [employer]- All Rights Reserved Reading location - IP/workstation name: [email or web address]
--- NOTE | 2018-03-22 16:01 | EKG REPORT ---
SEVERITY:- NORMAL ECG - SINUS RHYTHM : Confirmed by: Bam Eid 22-Mar-2018 15:59:49
[~2018-03-25 05:28] MED LIST changes: +CLINDAMYCIN 600 MG/D5W RTU 600 MG/50 ML RTUPB IV ONE; +CLINDAMYCIN 600 MG/D5W RTU 600 MG/50 ML RTUPB IV PRN; +LACTATED RINGERS 1000 ML IV PRN; +LIDOCAINE 0.5% INJ-PF (5 MG/ML) 50 ML SDV SUBCUT PRN; -PROPOFOL INJ 200 MG/20 ML VIAL IV ONE
[2018-03-25] MEDS ORDERED: FENTANYL CITRATE INJ/PF 100 MCG/2 ML AMPUL ONE (06:35)
[2018-03-25] MEDS ORDERED: MIDAZOLAM 2 MG/2 ML INJ ONE (06:36)
[2018-03-25] MEDS ORDERED: DEXAMETHASONE SOD PHOSPHATE INJ 4 MG/1 ML VIAL ONE (06:36)
[2018-03-25] MEDS ORDERED: ONDANSETRON HCL INJ/PF 4 MG/2 ML SDV ONE (06:36)
[2018-03-25] MEDS ORDERED: ACETAMINOPHEN 1,000 MG/100 ML RTUPB IV ONE (06:36)
[2018-03-25] MEDS ORDERED: PROPOFOL INJ 200 MG/20 ML VIAL IV ONE (06:36)
[2018-03-25] MEDS ORDERED: BUPIVACAINE HCL 0.5 % INJ/PF 30 ML SDV ONE (06:40)
[2018-03-25] MEDS ORDERED: MEPERIDINE HCL/PF INJ 25 MG/1 ML DISP.SYRIN IV PRN (08:12)
[2018-03-25] MEDS ORDERED: DIPHENHYDRAMINE HCL 50 MG/ML VIAL IV PRN (08:12)
[2018-03-25] MEDS ORDERED: PROMETHAZINE HCL INJ 25 MG/1 ML VIAL IV PRN (08:12)
[2018-03-25] MEDS ORDERED: FENTANYL CITRATE INJ/PF 100 MCG/2 ML AMPUL IV PRN ×3 (08:12)
--- NOTE | 2018-03-25 08:47 | Operative Report ---
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 A thigh tourniquet was applied to the left lower extremity. Timeout was done identifying the left knee was the correct site. 0.5%t plain Marcaine was injected into anticipated portal sites. The extremity was elevated and the tourniquet was inflated at 300 mmHg. 11 blade was used to establish the anterolateral portal. Scope was introduced. At this point I established my anteromedial portal. Diagnostic scope was done showing the patient had diffuse grade 3 changes of the medial femoral condyle, patella, in the third portion of the lateral femoral condyle. Trochlear groove only showed grade 1 changes. The medial tibial plateau had grade 2 changes and areas of grade 3 but there was a focal 5 mm defect with exposed bone adjacent to the meniscal tear. Lateral tibial plateau was pristine. Degenerative complex tear of the medial meniscus was noted and small peripheral mid body tear of the lateral meniscus. At this point combination of a meniscal biter and a 4.0 mm shaver was used to first to my abrasion chondroplasty of the affected area as mentioned above. I turned my attention to the medial and lateral meniscus where I used the meniscal biter and shaver to resect majority of the medial meniscus but only did 10% resection of the lateral meniscus. Popliteal hiatus was intact. At this point the fluid of the knee was removed and I proceeded to close the 2 portal sites with 3-0 nylon. Tourniquet was let down after 19 minutes. The portal sites were covered with Xeroform 4 x 4 dressing and AVD pad followed by a soft roll. I overwrapped it with an Owen bandage. Drapes were cut and removed. Patient was successfully extubated and sent to PACU in stable condition.
--- NOTE | 2018-03-25 08:50 | Discharge Summary ---
Discharge Summary (SDC) - Discharge Final Diagnosis: Status post left knee arthroscopic partial medial and lateral meniscectomy and chondroplasty Date of Surgery: 03/25/18 Discharge Date: 03/25/18 Condition: Good Treatment or Instructions: Patient instructed to follow up in 10-14 days. Patient instructed to keep dressing dry clean and intact for 4 days and then allowed to remove. At that point patient can shower and apply Band-Aids as needed. Patient can weight-bear as tolerated and do range of motion exercises as tolerated. Crutches for support and safety. Can wean crutches once stable on his feet. Patient instructed to call the office if patient develops fevers chills redness and drainage from the surgical sites. Prescriptions: Oxycodone HCl/Acetaminophen [Percocet 5-325 mg Tablet] 1 - 2 tab PO ASDIR PRN # 60 tablet PRN Reason: Referrals: RONEN MAY PA-C [Primary Care Provider] - Discharge Diet: As Tolerated Respiratory Treatments at Home: Deep Breathing/Coughing Discharge Activity: No Driving - While taking narcotics, No Lifting/Push/Pulling , Slowly Increase Activity Home Care Assistance: None Needed Adaptive Devices on Discharge: Axillary Crutches Report the Following to Your Physician Immediately: Shortness of Breath, Vomiting, Increase in Pain, Fever over 101 Degrees, Unusual Bleeding, Redness, Swelling, Warmth, Increased Soreness, Drainage-Yellow, Drainage-[place], Drainage- Green, Drainage-Foul Smelling
[2018-03-25] MEDS ORDERED: OXYCODONE-ACETAMINOPHEN 5-325 MG TABLET PO PRN ×2 (08:51)
[2018-03-25] MEDS ORDERED: KETOROLAC TROMETHAMINE INJ/PF 30 MG/1 ML SDV ONE (09:05)
[2018-03-25] MEDS ORDERED: OXYCODONE-ACETAMINOPHEN 5-325 MG TABLET ONE (09:49)
[2018-03-25 10:48] VITALS: BP 104/62
== END 2018-03-25 10:50 | disposition home or self-care (01) ==
LOC: OROUT 05:28
PROVIDERS: ATTEND Orthopaedic Surgery
DX: M25.562 Pain in left knee (principal); S83.222A Peripheral tear of medial meniscus, current injury, left knee, initial encounter; S83.262A Peripheral tear of lateral meniscus, current injury, left knee, initial encounter; X58.XXXA Exposure to other specified factors, initial encounter; M94.262 Chondromalacia, left knee; M17.12 Unilateral primary osteoarthritis, left knee; E78.5 Hyperlipidemia, unspecified; E78.00 Pure hypercholesterolemia, unspecified; F17.210 Nicotine dependence, cigarettes, uncomplicated; Z79.899 Other long term (current) drug therapy; Z88.5 Allergy status to narcotic agent; Z88.0 Allergy status to penicillin; Z79.82 Long term (current) use of aspirin
CPT/HCPCS: 93005; 36415; 85027; 80048; 81001; 71046; 93010; 29880; J2250; J3490; J1100; J3010; J1885; A9270; J2405; J2704; J0131; 1400